=== PATIENT | male | born 1945 | race Caucasian/White ===

== ENCOUNTER 2018-07-20 13:43 | Emergency (ER) | payer MEDICARE, SELFPAY ==
[2018-07-20 13:44] VITALS: BP 116/58; PULSE 112; RESP 16; TEMP 36.6; O2SAT 97; BMI 27.3
--- NOTE | 2018-07-20 13:55 | VDLE_ITS ---
Reason For Study: RLE Pain RIGHT GSV is normal. CFV is compressible, spontaneous, phasic, competent and demonstrates normal augmentation. FV is compressible, spontaneous, phasic, competent and demonstrates normal augmentation. POP V is compressible, spontaneous, phasic, competent and demonstrates normal augmentation. T/P Trunk is compressible. PTV is compressible. RT PerV is compressible. Procedure Exam performed portable in ED. A preliminary report was called and/or faxed to [facility]. Interpretation Summary Deep veins of the right lower extremity are patent and compressible segmentally. There is no evidence of right lower extremity deep vein thrombosis. Valvular competence appears intact within the proximal deep venous system on the right . The right greater saphenous vein appears patent and compressible segmentally. Ordering Physician: Madiha Philip Referring Physician: Jared Shearer M.D. Performed By: Dona Smith RVT
--- NOTE | 2018-07-20 14:00 | RAD_ITS ---
STUDY: X-RAY - RIGHT TIBIA AND FIBULA REASON FOR EXAM: Male, 72 years old. Diffuse pain. TECHNIQUE: 2 view(s) of the tibia and fibula were obtained. COMPARISON: None. FINDINGS: Status post total knee replacement. Normal visualized fibula. Status post ankle replacement. 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 Calcaneal spurs. The soft tissue structures are unremarkable. RAD/Tibia & Fibula 2 Views IMPRESSION: No acute abnormality is seen. Electronically Signed: Chris Sidhu, at 14:37 EDT , Service support ,
--- NOTE | 2018-07-20 14:08 | ED.VISSUMM ---
- ER Visit Summary Date of Service: 07/20/18 Chief Complaint: [Right leg pain History of Present Illness: The patient is a 72 M [since the emergency department in his right leg x2 days. Patient denies any injury. He denies recent travel or surgery. He denies any chest pain or shortness of breath. Patient does state that it only tends to hurt when he is up and walking. Patient did have a right ankle replacement about 3 or 4 years ago. He denies any fevers.] Physical Examination: [HEENT-PERRLA, EOMI. Cranial nerves II through XII grossly intact. TMs clear. Mucous membranes moist. No adenopathy. Cardiovascular-regular rate and rhythm without murmur or ectopy Lungs-clear to auscultation, chest wall stable without crepitus or subcu emphysema Abdomen-normoactive bowel sounds, soft, nontender, no rebound or rigidity, no peritoneal signs. Extremities-intact ?4, normal range of motion, normal pulses, atraumatic. Right leg-patient has tenderness to the anterior aspect of the lower leg as well as calf. No erythema or warmth noted. No ropes or cords palpated. Negative Homans sign. Patient has normal popliteal, dorsal pedal, and posterior tibial pulses. Normal cap refill.] Test Results: [X-rays of the right tib-fib obtained showed prior right knee replacement and right ankle displacement otherwise nothing acute. Patient had venous Doppler of the right lower extremity that was negative for DVT.] Emergency Department Course and Treatment: [] Treatment Plan: [Advised to use ibuprofen or Tylenol for discomfort and to rest lower extremity. Patient advised to follow-up with primary care physician in 5 to 7 days.] Disposition: [Discharged home in stable condition] Impression: [Leg pain-etiology uncertain] This note was generated with [employer] dictation software. It may contain incorrect words, spelling, and punctuation that were not noted in review of the chart prior to signing ED Disposition - Plan for ED Patient: Referrals: Isabel Henriquez DO [Primary Care Provider] -
--- NOTE | 2018-07-20 15:03 | ED.DEP ---
ED Disposition - Plan for ED Patient: Instructions: ED Strain Muscle Ext Referrals: Isabel Henriquez DO [Primary Care Provider] - 5-7 Days
== END 2018-07-20 15:13 | disposition home or self-care (01) ==
LOC: ED 14:10
PROVIDERS: Emergency Provider Emergency Medicine; Family Provider Family Medicine; PCP Family Medicine
DX: M79.604 Pain in right leg (principal); Z96.661 Presence of right artificial ankle joint; Z96.651 Presence of right artificial knee joint
CPT/HCPCS: 73590; 93971; 99282

== ENCOUNTER 2022-12-07 12:25 | Inpatient (IN) | payer MEDICARE, SELFPAY ==
[2022-12-07] VITALS (18 sets, daily range): BP systolic 89–115; BP diastolic 57–98; PULSE 65–170; RESP 18–24; TEMP 36.1–36.3; O2SAT 92–97; BMI 25.3; BMI 27.0
--- NOTE | 2022-12-07 12:33 | EDS_ITS ---
HPI <WILLIAM Kwong - Last Filed: 12/07/22 14:32> History of Present Illness Chief Complaint: Palpitations Narrative Narrative: 77-year-old male went in for left rotator cuff surgery this morning and his preop EKG was abnormal so he was sent here for evaluation. He states he feels completely fine. Denies chest pain, shortness of breath, palpitations, or GI symptoms. He held his aspirin and meloxicam over the last 5 days per orthopedic instructions. He denies cardiac history. PFSH <WILLIAM Kwong - Last Filed: 12/07/22 14:32> [facility] Medical History (Updated 12/07/22 @ 14:[address] Aubrey Watson MD) Anxiety Arthritis Depression Home Medications calcium carbonate 600 mg-vitamin D3 10 mcg (400 unit) tablet (Calcium 600 + D(3)) 1 ea PO BID 04/26/13 [History Last Taken Unknown] famotidine 20 mg tablet 20 mg PO DAILY 04/26/13 [History Last Taken 05/02/13 04:00] bupropion HCl 300 mg 24 hr tablet, extended release 300 mg PO DAILY 12/07/22 [History Last Taken Unknown] buspirone 15 mg tablet 15 mg PO BID 12/07/22 [History Last Taken Unknown] meloxicam 7.5 mg tablet 7.5 mg PO BID 12/07/22 [History Last Taken Unknown] Allergy/AdvReac Type Severity Reaction Status Date / Time No Known Allergies Allergy Verified 12/07/22 12:27 Surgical History (Updated 12/07/22 @ 13:42 by Gabrielle Chung) Ankle joint replacement status Previous back surgery Total knee replacement status Social History (Updated 12/07/22 @ 13:42 by Gabrielle Chung) household members: spouse and family housing: house Smoking Status: Former smoker ROS <WILLIAM Kwong - Last Filed: 12/07/22 14:32> ROS ED ROS Narrative Constitutional: Negative for fever, chills, malaise. CVS: Negative for palpitations, chest pain, syncope. Respiratory: Negative for shortness of breath, cough, orthopnea. GI: Negative for abdominal pain, nausea, vomiting. EXAM <WILLIAM Kwong - Last Filed: 12/07/22 14:32> Physical Exam Narrative Exam Narrative: CONST: Patient sitting in no acute distress. EYES: Normal inspection. NECK: Normal inspection. RESP: No respiratory distress, CTAB. CVS: Tachycardic irregularly irregular rhythm, no murmur, no gallop. SKIN: Color normal, no rash, warm, dry, intact. EXTREMITIES: Normal appearance, no pedal edema. NEURO: Oriented x4. PSYCH: Normal affect. Const Vital Signs: 12/07/22 12:26 12/07/22 12:43 12/07/22 13:05 Temperature 97 F L Temperature Source Temporal Pulse Rate 115 H 170 H 157 H Respiratory Rate 18 24 H 18 Blood Pressure 113/98 H 100/88 H Blood Pressure Mean 103 92 Pulse Ox 97 94 95 Oxygen Delivery Method Room Air Room Air Room Air 12/07/22 13:06 12/07/22 13:40 12/07/22 13:54 Temperature Temperature Source Pulse Rate 127 H 157 H 120 H Respiratory Rate 21 H 18 Blood Pressure 106/82 H 112/71 Blood Pressure Mean 90 84 Pulse Ox 92 92 Oxygen Delivery Method Room Air 12/07/22 14:26 Temperature Temperature Source Pulse Rate 113 H Respiratory Rate 19 H Blood Pressure 115/67 Blood Pressure Mean 83 Pulse Ox 94 Oxygen Delivery Method <Dr. Aubrey Watson MD - Last Filed: 12/07/22 14:35> Physical Exam Const Vital Signs: 12/07/22 12:26 12/07/22 12:43 12/07/22 13:05 Temperature 97 F L Temperature Source Temporal Pulse Rate 115 H 170 H 157 H Respiratory Rate 18 24 H 18 Blood Pressure 113/98 H 100/88 H Blood Pressure Mean 103 92 Pulse Ox 97 94 95 Oxygen Delivery Method Room Air Room Air Room Air 12/07/22 13:06 12/07/22 13:40 12/07/22 13:54 Temperature Temperature Source Pulse Rate 127 H 157 H 120 H Respiratory Rate 21 H 18 Blood Pressure 106/82 H 112/71 Blood Pressure Mean 90 84 Pulse Ox 92 92 Oxygen Delivery Method Room Air 12/07/22 14:26 Temperature Temperature Source Pulse Rate 113 H Respiratory Rate 19 H Blood Pressure 115/67 Blood Pressure Mean 83 Pulse Ox 94 Oxygen Delivery Method MDM <WILLIAM Kwong - Last Filed: 12/07/22 14:32> MDM MDM Narrative Medical decision making narrative: History gathered from: Patient, family member Patient sent in for abnormal EKG found during preop clearance. He is asymptomatic. He is awake and alert in no distress. He is in A-fib RVR in the 160s, BP 113/98, and otherwise normal vital signs. Other than A-fib his exam is unremarkable. He has had no chest pain, dyspnea, or palpitations. Blood work including CBC, BMP, troponin and magnesium are all within normal limits. He was given IV Cardizem 10 mg bolus and started on drip at 5 mg/hour. He remained persistently in the 120?140 range so will be increased to 10 mg an hour. Case discussed with hospitalist for admission to stepdown unit. Lab Data Attestation: I reviewed the patient's lab results. Labs: Laboratory Results - last 24 hr 12/07/22 12:40 WBC 9.6 RBC 4.74 Hgb 15.0 Hct 45.1 MCV 95.1 H MCH 31.6 MCHC 33.3 RDW Std Deviation 46.2 H RDW Coeff of Davis 13.2 Plt Count 189 MPV 8.6 Immature Gran % (Auto) 0.400 Neut % (Auto) 68.2 Lymph % (Auto) 19.5 Lewis % (Auto) 8.3 Eos % (Auto) 2.9 Baso % (Auto) 0.7 Absolute Neuts (auto) 6.6 Absolute Lymphs (auto) 1.87 Nucleated RBC % 0 Sodium 139 Potassium 4.1 Chloride 107 Carbon Dioxide 26.0 Anion Gap 6 BUN 23 H Creatinine 1.28 Estim Creat Clear Calc 52.20 Est GFR (MDRD) Af Amer 70 Est GFR (MDRD) Non-Af 58 L BUN/Creatinine Ratio 18.0 Glucose 101 Calcium 9.4 Magnesium 2.5 Troponin I High Sens 11 Radiography Diagnostic Testing: Clinical Impression(s) from Imaging Studies Chest X-Ray 12/07/22 12:37 IMPRESSION: No acute abnormality is seen. Electronically Signed: Chris Sidhu MD at 13:11 EDT , ED attending interpretation of 1- view chest x-ray shows normal heart size, no acute infiltrate, edema, or effusion. EKG Initial EKG: Attestation: I personally reviewed and interpreted this EKG as follows: Comments: A-fib RVR at 159 bpm No STEMI criteria <Dr. Aubrey Watson MD - Last Filed: 12/07/22 14:35> [facility] Lab Data Labs: Laboratory Results - last 24 hr 12/07/22 12:40 WBC 9.6 RBC 4.74 Hgb 15.0 Hct 45.1 MCV 95.1 H MCH 31.6 MCHC 33.3 RDW Std Deviation 46.2 H RDW Coeff of Davis 13.2 Plt Count 189 MPV 8.6 Immature Gran % (Auto) 0.400 Neut % (Auto) 68.2 Lymph % (Auto) 19.5 Lewis % (Auto) 8.3 Eos % (Auto) 2.9 Baso % (Auto) 0.7 Absolute Neuts (auto) 6.6 Absolute Lymphs (auto) 1.87 Nucleated RBC % 0 Sodium 139 Potassium 4.1 Chloride 107 Carbon Dioxide 26.0 Anion Gap 6 BUN 23 H Creatinine 1.28 Estim Creat Clear Calc 52.20 Est GFR (MDRD) Af Amer 70 Est GFR (MDRD) Non-Af 58 L BUN/Creatinine Ratio 18.0 Glucose 101 Calcium 9.4 Magnesium 2.5 Troponin I High Sens 11 Radiography Diagnostic Testing: Clinical Impression(s) from Imaging Studies Chest X-Ray 12/07/22 12:37 IMPRESSION: No acute abnormality is seen. Electronically Signed: Chris Sidhu MD at 13:11 EDT , Treatment and Re-Evaluation :: I have personally performed a face to face assessment of the patient and have reviewed the LEONA Note. I performed a substantive portion of the visit including all aspects of the following. My savage findings include: History: Patient was sent from preoperative clearance for increased heart rate. Patient states he feels fine. He does not feel his heart rate high or irregular. He is not short of breath or having chest pain. He does not feel lightheaded. He feels the same today as he does every other day. Patient has no history of heart disease or heart rhythm abnormalities. No recent travel surgery or immobilization or history of DVT or PE. He takes baby aspirin but has held this pending rotator cuff surgery. He is also on meloxicam and antidepressant. Exam: Patient is awake alert nontoxic. He looks comfortable. He is not pale or diaphoretic. Lungs are clear. Heart is tachycardic and irregular. Abdomen is benign. No notable edema. Monitor shows atrial fibrillation with rapid rate Medical Decision Making: Patient will have blood work done. We will initiate diltiazem. We gave him an IV bolus and his heart rate has come down about 30-40 beats. We are waiting for a drip from pharmacy. Plan will be to admit the patient for further work-up. <Dr. Aubrey Watson MD - Last Filed: 12/07/22 14:35> Critical Care Time Critical Care Time: Yes Critical care time (excluding procedures): 30-74 minutes, Discussing w/Patient &/or Family/Protein Scientist, Discussing w/Consultants, Arranging Admission or Transfer, Performing Direct Patient Care at Bedside and - (35 minutes, adjusting meds, starting and adjusting drip, arranging admission, charting) Discharge Plan Triage Chief Complaint: Palpitations ED Midlevel Provider: Suha Gonzales ED Provider: Aubrey Watson Dx/Rx/DC Orders Clinical Impression: Atrial fibrillation with rapid ventricular response, Aspirin long-term use, History of arthritis Prescriptions: No Action famotidine 20 MG tablet 20 mg PO DAILY calcium carbonate-vitamin D3 [Calcium 600 + D(3)] 1 EACH tablet 1 ea PO BID buspirone 15 mg tablet 15 mg PO BID Patient Comments: TAKE ONE TABLET BY MOUTH TWICE DAILY bupropion HCl 300 mg tablet extended release 24 hr 300 mg PO DAILY Patient Comments: TAKE ONE TABLET BY MOUTH EVERY DAY meloxicam 7.5 mg tablet 7.5 mg PO BID Patient Comments: TAKE ONE TABLET BY MOUTH TWICE DAILY WITH FOOD Primary Care Provider: Isabel Henriquez Referrals: Isabel Henriquez DO [Primary Care Provider] -
--- NOTE | 2022-12-07 12:37 | RAD_ITS ---
STUDY: X-RAY CHEST REASON FOR EXAM: Male, 77 years old. Palpitations TECHNIQUE: Single AP portable view of the chest. COMPARISON: None. FINDINGS: EKG electrodes are seen. The lungs are clear and expanded. There is no demonstrated pleural abnormality. Normal size heart. Calcified left hilar and mediastinal lymph nodes. Normal visualized pulmonary arteries. There is atherosclerotic calcification of the aortic arch with tortuosity. There are degenerative changes of the visualized thoracic spine. Normal visualized ribs, clavicles, and shoulders. There is no demonstrated abnormality of the visualized soft tissue structures of the upper abdomen. RAD/Chest 1 View (Portable) IMPRESSION: No acute abnormality is seen. Electronically Signed: Chris Sidhu MD at 13:11 EDT ,
[2022-12-07 12:54] LABS: Absolute Lymphocyte Count 1.87 X10^3/uL (0.83-4.51); Absolute Neutrophil Count 6.6 X10^3/uL (2.0-7.7); Basophil# 0.07 X10^3/uL; Basophil% 0.7 % (0-1); Eosinophil# 0.28 X10^3/uL; Eosinophils% 2.9 % (0-5); Hematocrit 45.1 % (40-54); Lymphocyte # 1.87 X10^3/ul (0.83-4.51); Lymphocyte % 19.5 % (19-41); Mean Corp Hgb Conc 33.3 g/dL (32-36); Mean Corpuscular Hgb 31.6 pg (27.0-32.0); Mean Corpuscular Volume 95.1 fL (80-94); Mean Platelet Vol. 8.6 fl (6.2-12.0); Monocyte% 8.3 % (0-10); NRBC Flagged by Analyzer 0 % (0-5); Neutrophil # 6.55 X10^3/uL (2.7-7.7); Neutrophil % 68.2 % (47-70); Platelet Count 189 K/mm3 (150-450); RBC Distribution Width CV 13.2 % (11.6-14.6); RBC Distribution Width SD 46.2 fl (35.1-43.9); Red Blood Count 4.74 M/mm3 (4.6-6.2); White Blood Count 9.6 K/mm3 (4.4-11.0)
[2022-12-07] MEDS: dilTIAZem 25 MG/5 ML Vial 10 MG IV BOLUS (13:04)
[2022-12-07 13:09] LABS: Anion Gap 6 (5-15); BUN 23 mg/dL (7-18); Calcium,Total 9.4 mg/dL (8.5-10.1); Chloride 107 mmol/L (98-107); Creatinine, Serum 1.28 mg/dL (0.70-1.30); EST Glomerular Filtration Rate 58 mL/min (>60); Est Glom Filt Rate - Afr Amer 70 mL/min (>60); Glucose 101 mg/dL (74-106); Magnesium 2.5 mg/dL (1.6-2.6); Potassium 4.1 mmol/L (3.5-5.1); Sodium Level 139 mmol/L (136-145); Troponin-I HS 11 pg/mL (3.0-78.0)
--- NOTE | 2022-12-07 13:17 | EKG12_ITS ---
Test Reason : Blood Pressure : / mmHG Vent. Rate : 159 BPM Atrial Rate : 000 BPM P-R Int : 000 ms QRS Dur : 088 ms QT Int : 284 ms P-R-T Axes : 000 079 007 degrees QTc Int : 461 ms Critical Test Result: High HR Atrial fibrillation with rapid ventricular response Nonspecific ST abnormality Abnormal ECG Confirmed by BONILLA CARRINGTON, DAMEON ([id number]), food expeditor TRINI HEATON ([id number]) on 12/19/2022 7:58:22 AM Referred By: ABIDA Confirmed By:BRITNI CRYSTAL MD
--- NOTE | 2022-12-07 13:19 | NURSING ---
NO OLD EKGS
[2022-12-07] MEDS: Diltiazem 125 MG in Dextrose 5%-Water (100mL Bag) 100 ML CONT INF (13:40)
--- NOTE | 2022-12-07 15:40 | ECHOD_ITS ---
Reason For Study: ATRIAL FIBRILLLATION/ATRIAL FLUTTER Procedure This was a 2D Doppler, Color Flow transthoracic echocardiogram. Exam performed portable in patient room. Left Ventricle Normal LV size. The estimated ejection fraction is 50-55 %. No evidence for diastolic dysfunction. No regional wall motion abnormalities noted. Right Ventricle Normal RV size. Normal systolic function. Atria The left atrium is mildly enlarged. The right atrium is mildly enlarged. No doppler evidence for ASD. Mitral Valve There is no mitral valve stenosis. Trivial mitral valve insufficiency. Tricuspid Valve There is no tricuspid stenosis. Trivial tricuspid valve insufficiency. Unable to estimate RV systolic pressure due to insufficient tricuspid regurgitant envelope. Aortic Valve Trisinus/trileaflet aortic valve. There is no aortic stenosis. Trivial aortic valve insufficiency. Pulmonic Valve There is no pulmonic valvular stenosis. No pulmonic valve insufficiency. Great Vessels Normal aortic root. Pericardium/Pleural No pericardial effusion. MMode/2D Measurements & Calculations LVIDd: 4.6 cm IVSd: 1.1 cm Ao root diam: 3.3 cm LVIDs: 3.4 cm LVPWd: 1.1 cm RVDd: 2.9 cm FS: 24.9 % LAV(MOD-bp): 74.9 ml LVAd ap4: 30.0 cm2 LVAd ap2: 31.0 cm2 LAV(MOD-sp2): 74.7 ml LVLd ap4: 8.0 cm LVLd ap2: 8.1 cm LAV(MOD-sp4): 74.7 ml EDV(MOD-sp4): 94.7 ml EDV(MOD-sp2): 97.0 ml EDV(sp4-el): 95.6 ml EDV(sp2-el): 100.6 ml LVAs ap4: 19.5 cm2 LVAs ap2: 18.5 cm2 LVLs ap4: 6.8 cm LVLs ap2: 7.0 cm ESV(MOD-sp4): 47.2 ml ESV(MOD-sp2): 41.6 ml ESV(sp4-el): 47.3 ml ESV(sp2-el): 41.7 ml EF(MOD-sp4): 50.2 % EF(MOD-sp2): 57.1 % EF(sp4-el): 50.5 % SV(MOD-sp4): 47.5 ml SV(MOD-sp2): 55.4 ml SV(sp4-el): 48.3 ml LA dimension(2D): 4.7 cm LA A4 area: 23.4 cm2 RA A4 area: 17.3 cm2 TAPSE: 2.6 cm Time Measurements MV dec time: 0.29 sec Doppler Measurements & Calculations MV E max hong: 65.2 cm/sec Lat Peak E' Hong: 11.6 cm/sec Med Peak E' Hong: 9.8 cm/sec MV A max hong: 67.6 cm/sec E/E' lat: 5.6 E/E' med: 6.6 MV E/A: 0.96 MV V2 max: 84.2 cm/sec MV P1/2t max hong: 72.7 cm/sec Ao V2 max: 98.3 cm/sec MV max P.8 mmHg MV P1/2t: 92.2 msec Ao max P.9 mmHg MV V2 mean: 50.3 cm/sec MV dec slope: 230.9 cm/sec2 Ao V2 mean: 75.5 cm/sec MV mean P.1 mmHg Ao mean P.4 mmHg MV V2 VTI: 22.1 cm MVA(P1/2t): 2.4 cm2 Ao V2 VTI: 24.4 cm AV (velocity ratio): 0.78 LV V1 max: 72.5 cm/sec PA V2 max: 130.5 cm/sec LV V1 max P.1 mmHg PA V2 mean: 101.7 cm/sec LV V1 mean P.2 mmHg LV V1 mean: 51.4 cm/sec LV V1 VTI: 19.0 cm ECHO/Echo Complete Interpretation Summary The estimated ejection fraction is 50-55 %. No evidence for diastolic dysfunction. The left atrium is mildly enlarged. The right atrium is mildly enlarged. Trivial mitral valve insufficiency. Ordering Physician: Dimas Slater Referring Physician: Isabel Henriquez Performed By: Madie Luke, CHUCHO, RVT
[2022-12-07] MEDS: Metoprolol Tartrate 25 MG Tablet 12.5 MG PO ×2 (16:18→21:33)
--- NOTE | 2022-12-07 16:40 | EKG12_ITS ---
Test Reason : RHYTHM CHANGE Blood Pressure : / mmHG Vent. Rate : 079 BPM Atrial Rate : 079 BPM P-R Int : 172 ms QRS Dur : 100 ms QT Int : 408 ms P-R-T Axes : -12 063 045 degrees QTc Int : 467 ms Sinus rhythm with Premature atrial complexes Otherwise normal ECG When compared with ECG of 07-DEC-2022 12:33, MANUAL COMPARISON REQUIRED, DATA IS UNCONFIRMED Confirmed by BONILLA CARRINGTON, DAMEON ([id number]), offline editor KATHY CARABALLO ([id number]) on 12/19/2022 11:11:08 AM Referred By: Confirmed By:BRITNI CRYSTAL MD
--- NOTE | 2022-12-07 17:46 | PCM.HP.STD ---
HPI - General General Date of Admission: 12/07/22 Date of Service: 12/07/22 Chief Complaint: New onset atrial fib with RVR HPI Narrative DONI TABARES, is a 77 M who presents to the emergency room at [facility] for evaluation of newly diagnosed A-fib with RVR, patient was in preop about to undergo a shoulder surgery when it was noted that he was in atrial fibrillation which is a new rhythm for the patient. He was sent to the ER for evaluation. EKG showed the patient to be in A-fib with a rate of approximately 120, patient was asymptomatic. Labs obtained on the patient reveal normal CBC, chemistry profile was abnormal for a BUN of 23. Chest x-ray showed no acute abnormality, patient's troponin was unremarkable. Patient was placed on Cardizem drip in the emergency room, he will be admitted to stepdown on PCU and the Cardizem drip will be continued. I have elected to add a small dose of a beta-aliya to the patient's medical regimen, echocardiogram was ordered, I briefly talked with cardiology about the case and they did not advise having the patient undergo a stress test at this time. [facility] Medical History Anxiety Arthritis Depression Home Medications calcium carbonate 600 mg-vitamin D3 10 mcg (400 unit) tablet (Calcium 600 + D(3)) 1 ea PO BID suppleme 04/26/13 [History Last Taken 12/06/22] famotidine 20 mg tablet 20 mg PO DAILY stomach 04/26/13 [History Last Taken 05/02/13 04:00] bupropion HCl 300 mg 24 hr tablet, extended release 300 mg PO DAILY mood 12/07/22 [History Last Taken 12/06/22] buspirone 15 mg tablet 15 mg PO BID mood 12/07/22 [History Last Taken 12/06/22] meloxicam 7.5 mg tablet 7.5 mg PO BID stomach 12/07/22 [History Last Taken Unknown] Allergy/AdvReac Type Severity Reaction Status Date / Time No Known Allergies Allergy Verified 12/07/22 12:27 Surgical History Ankle joint replacement status Previous back surgery Total knee replacement status Social History (Updated 12/07/22 @ 13:42 by Gabrielle Chung) household members: spouse and family housing: house Smoking Status: Former smoker ROS Constitutional Constitutional: Denies anorexia, change in weight, chills, fatigue, fever(s), night sweats or weakness Eyes Eyes: Denies blurry vision, change in vision, discharge from eye(s) or eye pain Cardiovascular Cardiovascular: Denies chest pain, claudication, dyspnea on exertion, edema, lightheadedness or palpitations Respiratory/Chest Respiratory/Chest: Denies cough, excessive phlegm production, hemoptysis, productive cough, shortness of breath at rest or shortness of breath with exertion Gastrointestinal Gastrointestinal: Denies abdominal pain, constipation, diarrhea, dyspepsia, hematemesis, hematochezia, melena, nausea or vomiting Genitourinary Genitourinary: Denies dysuria, hematuria, urinary frequency, urinary hesitancy, urinary incontinence or urinary urgency Musculoskeletal Musculoskeletal: Denies back pain, joint pain, joint stiffness, joint swelling, myalgias or neck pain Neurologic Neurologic: Denies abnormal gait, abnormal speech, dizziness, focal weakness, headache(s), loss of vision, numbness, other visual disturbances, paresthesias, syncope or tingling Psychiatric Psychiatric: Denies anxiety, cognitive impairment, depression, irritability, mood swings or suicidal ideation Endocrine Endocrinology: Denies change in body appearance, cold intolerance, excessive sweating, heat intolerance, polydipsia or polyuria Hematologic/Lymphatic Hematologic/Lymphatic: Denies none, anemia, easy bleeding, easy bruising or lymphadenopathy Allergic/Immunologic Allergic/Immunologic: Denies rhinitis, urticaria, eczemia or asthma Vital Signs Vital Signs Vital Signs: 12/07/22 12:26 12/07/22 12:43 12/07/22 13:05 Temperature 97 F L Temperature Source Temporal Pulse Rate 115 H 170 H 157 H Respiratory Rate 18 24 H 18 Respiratory Effort Respiratory Depth Respiratory Pattern Blood Pressure 113/98 H 100/88 H Blood Pressure Mean 103 92 Blood Pressure Source Blood Pressure Position Blood Pressure Location Pulse Ox 97 94 95 Oxygen Delivery Method Room Air Room Air Room Air 12/07/22 13:06 12/07/22 13:40 12/07/22 13:54 Temperature Temperature Source Pulse Rate 127 H 157 H 120 H Respiratory Rate 21 H 18 Respiratory Effort Respiratory Depth Respiratory Pattern Blood Pressure 106/82 H 112/71 Blood Pressure Mean 90 84 Blood Pressure Source Blood Pressure Position Blood Pressure Location Pulse Ox 92 92 Oxygen Delivery Method Room Air 12/07/22 14:26 12/07/22 14:44 12/07/22 15:50 Temperature 97.4 F L Temperature Source Oral Pulse Rate 113 H 124 H 83 Respiratory Rate 19 H 19 H 18 Respiratory Effort Respiratory Depth Respiratory Pattern Blood Pressure 115/67 107/65 Blood Pressure Mean 83 79 Blood Pressure Source Monitor Blood Pressure Position Semi-Fowlers Blood Pressure Location Left Arm Pulse Ox 94 96 95 Oxygen Delivery Method Room Air 12/07/22 16:00 12/07/22 16:18 12/07/22 16:00 Temperature Temperature Source Pulse Rate 82 82 Respiratory Rate Respiratory Effort Normal Non-Labored Respiratory Depth Normal Respiratory Pattern Normal Blood Pressure 101/60 Blood Pressure Mean 73 Blood Pressure Source Monitor Blood Pressure Position Semi-Fowlers Blood Pressure Location Left Arm Pulse Ox Oxygen Delivery Method Room Air 12/07/22 17:00 12/07/22 17:15 12/07/22 17:30 Temperature Temperature Source Pulse Rate 81 74 70 Respiratory Rate 18 20 H 18 Respiratory Effort Respiratory Depth Respiratory Pattern Blood Pressure 101/57 L 95/64 89/65 L Blood Pressure Mean 71 74 73 Blood Pressure Source Monitor Monitor Monitor Blood Pressure Position Semi-Fowlers Semi-Fowlers Semi-Fowlers Blood Pressure Location Left Arm Left Arm Left Arm Pulse Ox 93 97 94 Oxygen Delivery Method Room Air Room Air Room Air Weight Weight: 83 kg Body Mass Index (BMI) 27.0 Physical Exam Const alert, oriented x3, no apparent distress, average body habitus and healthy appearing General Appearance: cooperative, well kempt and well developed Orientation / Consciousness: awake, oriented to person, oriented to place and oriented to time HEENT normocephalic, head/scalp atraumatic, hearing grossly normal bilaterally and moist oral mucous membranes Eyes PERRL, EOMs intact bilaterally and conjunctivae normal Neck supple, no JVD, thyroid normal and no carotid bruits General: trachea midline Resp normal respiratory effort, no retractions, no use of accessory muscles and clear to auscultation bilaterally Auscultation: Negative for rales, rhonchi or wheezes Cardio S1 normal heart sound, S2 normal heart sound, no murmurs, no rub and no gallops Cardio Narrative: Heart rate and rhythm is irregular GI normal to inspection, nondistended, normoactive bowel sounds, soft to palpation, non-tender and non-distended Extremity no clubbing, cyanosis or edema Skin no rashes or lesions noted General Skin Exam: no breakdown Neuro oriented x3, CN's II-XII intact bilaterally, moves all extremities, no focal motor deficits and no sensory deficits noted Sensorium / Orientation: awake and alert Speech: speech normal Psych affect normal Results Lab / Micro Data 12/07/22 12:40 12/07/22 12:40 Labs: Laboratory Results - last 24 hr 12/07/22 12:40: WBC 9.6, RBC 4.74, Hgb 15.0, Hct 45.1, MCV 95.1 H, MCH 31.6, MCHC 33.3, RDW Std Deviation 46.2 H, RDW Coeff of Davis 13.2, Plt Count 189, MPV 8.6, Immature Gran % (Auto) 0.400, Neut % (Auto) 68.2, Lymph % (Auto) 19.5, Sharp % (Auto) 8.3, Eos % (Auto) 2.9, Baso % (Auto) 0.7, Absolute Neuts (auto) 6.6, Absolute Lymphs (auto) 1.87, Nucleated RBC % 0, Sodium 139, Potassium 4.1, Chloride 107, Carbon Dioxide 26.0, Anion Gap 6, BUN 23 H, Creatinine 1.28, Estim Creat Clear Calc 52.20, Est GFR (MDRD) Af Amer 70, Est GFR (MDRD) Non-Af 58 L, BUN/Creatinine Ratio 18.0, Glucose 101, Calcium 9.4, Magnesium 2.5, Troponin I High Sens 11 Radiology Impression Chest X-Ray 12/07/22 12:37 IMPRESSION: No acute abnormality is seen. Electronically Signed: Chris Sidhu MD at 13:11 EDT , Assessment & Plan Assessment/Plan (1) Atrial fibrillation with rapid ventricular response: PLAN: Plan 1. New onset atrial fibrillation with rapid ventricular response-patient will be placed in the stepdown status on PCU, Cardizem drip will be continued, patient will have an echocardiogram ordered, I will place patient on a small amount of a beta-aliya to augment treatment. I will begin the patient on Eliquis, I went over this medication with him. His family member was also in the room at the time my examination. #2 chronic anxiety/depression-patient is on Wellbutrin and BuSpar, these will be continued #3 osteoarthritis-I talked with the patient about using nonsteroidal anti-inflammatories while on Eliquis-I told him that he is not allowed to take his meloxicam or any other anti-inflammatories while on Eliquis. Total clinical time spent by myself addressing the patient's medical issues, reviewing all of his data, and collaborating with patient's care team: 55 min Charges/Coding Visit Charges Inpatient E&M: 67121 Init Hosp L2
[2022-12-07] MEDS: dilTIAZem CD 180 MG Capsule PO (18:02)
[2022-12-07] MEDS: APIXABAN 5 MG TABLET PO (21:33)
[2022-12-07] MEDS: busPIRone 15 MG TABLET PO (21:34)
[2022-12-08 08:51] VITALS: BP 102/75; PULSE 62; RESP 16; TEMP 36.5; O2SAT 94
[2022-12-08 08:53] LABS: Thyroid Stim Hormone (TSH) 3.24 uIU/mL (0.358-3.74)
[2022-12-08] MEDS: busPIRone 15 MG TABLET PO ×2 (08:55→21:12)
[2022-12-08] MEDS: APIXABAN 5 MG TABLET PO ×2 (08:55→21:12)
[2022-12-08] MEDS: buPROPion (XL) 300 MG TABLET.XL PO (08:55)
[2022-12-08] MEDS: Flu Vacc QS2023-24(65YR UP)/PF 240 MCG/0.7 ML Syringe IM (08:55)
[2022-12-08] MEDS: Famotidine 20 MG Tablet PO (08:55)
[2022-12-08] MEDS: Acetaminophen 325 MG Tablet 650 MG PO (10:40)
[2022-12-08 11:20] VITALS: BP 103/67; PULSE 88
[2022-12-08 12:08] VITALS: PULSE 75
[2022-12-08] MEDS: Metoprolol Tartrate 25 MG Tablet PO ×2 (12:08→21:12)
--- NOTE | 2022-12-08 12:40 | CASEMGMT ---
RN HILDA Face to Face with patient for initial transition planning/care coordination assessment. RN CM introduced self and role at [facility]. Patient lying in bed, alert and oriented. Patient willing to participate in assessment and is able to answer all questions appropriately. Care providers, pharmacy, and demographics verified. Patient wishes to discharge home, denies need for home health at this time. Patient states he has no further needs or concerns at this time. CM to follow for discharge planning needs that may arise. PCP: Martinez Specialists: none Preferred Pharmacy: [facility] Insurance: [employer] Prescription Benefit: yes Living Will/HPOA: none LNOK: Living Arrangements: Patient lives with in a single story home with no steps to enter. Patient is independent at home. Transportation: self, daughter DME/HHC: Patient has shower chair, cane, walker, grab bars at home. No previous HHC or SNF. Disposition Plan: Patient to discharge home with family support and follow-up plans in place. Dona VEGA, RN, CM
--- NOTE | 2022-12-08 14:00 | PN_ITS ---
Subjective Subjective Patient seen and examined. He had no active complaints. He denied any palpitations, dizziness,nauea, vomitin, diarrhea or any other symptoms. Review of systems is otherwise negative. He is no longer in afib with RVR. Objective Data Objective Data Vital Signs: Vital Signs Temp Pulse Resp BP Pulse Ox O2 Del Method 97.7 F L 75 16 103/67 94 Room Air 12/08/22 08:51 12/08/22 12:08 12/08/22 08:51 12/08/22 11:20 12/08/22 08:51 12/08/22 08:51 Oxygen Delivery Method Room Air Weight: 182 lb 15.739 oz Body Mass Index (BMI) 27.0 Intake & Output: Intake and Output for Last 24 Hours 12/06/22 12/07/22 12/08/22 23:59 23:59 23:59 Intake Total 273.25 / 773.25 1230 / 1230 Balance 273.25 / 773.25 1230 / 1230 Lab / Micro Data 12/07/22 12:40 12/07/22 12:40 Labs: Laboratory Results - last 24 hr 12/07/22 12:40: TSH 3.24 Radiography Diagnostic Testing: Radiology Impression Echocardiogram 12/07/22 15:40 Interpretation Summary The estimated ejection fraction is 50-55 %. No evidence for diastolic dysfunction. The left atrium is mildly enlarged. The right atrium is mildly enlarged. Trivial mitral valve insufficiency. Ordering Physician: Dimas Slater Referring Physician: Isabel Henriquez Performed By: Madie Luke RDCS, RVT Physical Exam Const alert, oriented x3 and no apparent distress General Appearance: cooperative and well developed HEENT normocephalic, head/scalp atraumatic, moist oral mucous membranes and oropharynx normal Eyes PERRL and EOMs intact bilaterally Neck no lymphadenopathy, supple and no JVD Lymph Lymphatic: no lymphadenopathy noted and no lymphedema noted Resp normal respiratory effort, normal air movement and clear to auscultation bilat erally Cardio regular rate, regular rhythm, S1 normal heart sound, S2 normal heart sound and no murmurs GI normal to inspection, nondistended, normoactive bowel sounds, soft to palpation, non-tender and non-distended Extremity normal capillary refill, no clubbing, cyanosis or edema and no calf tenderness Extremity Narrative: has tenderness over left shoulder, which is the site of his rotator cuff injury Skin General Skin Exam: no breakdown and turgor normal Neuro CN's II-XII intact bilaterally, no focal motor deficits, no sensory deficits noted and deep tendon reflexes 2+ bilaterally Motor Exam: general weakness Psych thought process normal, cooperative and affect normal Appearance: appropriate Assessment & Plan Assessment/Plan (1) Atrial fibrillation with rapid ventricular response: PLAN: Plan #New onset afib * RVR has resolved * Was found to be in new onset A-fib with RVR while he was being prepared for surgery for his left rotator cuff injury. * He does have a history of A-fib. Now in normal sinus rhythm and rate controlled. * Was started on metoprolol and Cardizem yesterday. Blood pressure running low this morning and heart rate is well controlled. We will therefore DC Cardizem and placed on metoprolol 25 mg twice daily. Now off Cardizem drip. * 2D echo done today showed EF of 50 to 55% with no regional wall motion abnormality seen and no evidence of diastolic dysfunction with mildly enlarged right and left atrium. * Patient started on Eliquis. #Chronic anxiety and depression: On Wellbutrin and BuSpar #Osteoarthritis : * Complains of pain in his fingers in his right shoulder. On meloxicam. * Told that he will need to be off of this because he was on the Eliquis. * He is also been taking aspirin presumably for cardio prophylaxis as he has not had any heart issues. Will DC that also. * P.o. Tylenol DVT prophylaxis: Started on Eliquis Charges/Coding Visit Charges Inpatient E&M: 55079 Subs Hosp L2
[2022-12-08 14:50] VITALS: BP 94/69; PULSE 65; RESP 16; TEMP 36.4; O2SAT 97
[2022-12-08 21:08] VITALS: BP 109/66; PULSE 63; RESP 14; TEMP 36.4; O2SAT 97
[2022-12-08 21:12] VITALS: BP 109/66; PULSE 63
[2022-12-09 03:00] VITALS: BP 106/74; PULSE 83; RESP 16; TEMP 36.5; O2SAT 98
[2022-12-09 08:05] VITALS: BP 116/73; PULSE 69
[2022-12-09] MEDS: APIXABAN 5 MG TABLET PO (08:05)
[2022-12-09] MEDS: Metoprolol Tartrate 25 MG Tablet PO (08:05)
[2022-12-09] MEDS: buPROPion (XL) 300 MG TABLET.XL PO (08:05)
[2022-12-09] MEDS: busPIRone 15 MG TABLET PO (08:06)
[2022-12-09] MEDS: Famotidine 20 MG Tablet PO (08:06)
[2022-12-09 09:00] VITALS: BP 116/73; PULSE 65; RESP 18; TEMP 36.7; O2SAT 97
--- NOTE | 2022-12-09 11:36 | DS.PCM_ITS ---
Providers Date of Admission: 12/07/22 Date of Discharge: 12/09/22 Primary Care Physician: Dr. Isabel Henriquez DO Reason For Visit: A FIB RVR Diagnosis Discharge Diagnosis (1) Atrial fibrillation with rapid ventricular response: Status: Acute Code(s): I48.91 - Unspecified atrial fibrillation Plan #New onset afib * RVR has resolved * Was found to be in new onset A-fib with RVR while he was being prepared for surgery for his left rotator cuff injury. * He does have a history of A-fib. Now in normal sinus rhythm and rate controlled. * Was started on metoprolol and Cardizem yesterday. Blood pressure running low this morning and heart rate is well controlled. We will therefore DC Cardizem and placed on metoprolol 25 mg twice daily. Now off Cardizem drip. * 2D echo done today showed EF of 50 to 55% with no regional wall motion abnormality seen and no evidence of diastolic dysfunction with mildly enlarged right and left atrium. * Patient started on Eliquis. #Chronic anxiety and depression: On Wellbutrin and BuSpar #Osteoarthritis : * Complains of pain in his fingers in his right shoulder. On meloxicam. * Told that he will need to be off of this because he was on the Eliquis. * He is also been taking aspirin presumably for cardio prophylaxis as he has not had any heart issues. Will DC that also. * P.o. Tylenol DVT prophylaxis: Started on Eliquis Medications at Discharge Home Medications calcium carbonate 600 mg-vitamin D3 10 mcg (400 unit) tablet (Calcium 600 + D(3)) 1 ea PO BID suppleme 04/26/13 famotidine 20 mg tablet 20 mg PO DAILY stomach 04/26/13 bupropion HCl 300 mg 24 hr tablet, extended release 300 mg PO DAILY mood 12/07/22 buspirone 15 mg tablet 15 mg PO BID mood 12/07/22 apixaban 5 mg tablet (Eliquis) 5 mg PO BID #60 tabs 12/09/22 metoprolol tartrate 25 mg tablet 25 mg PO BID #60 tabs 12/09/22 Hospital Course Operations None Procedures None and 2-D Echocardiogram Summary of Care Provided Minutes Spent on Discharge: 55 Hospital Course: Patient is a 77-year-old male with a past medical history as outlined was admitted through the ED on 12/07/2022 with a complaint of newly diagnosed A-fib with RVR. Patient was about to have shoulder surgery at the ambulatory center and was in preop and was noticed that he was in A-fib per the monitor. EKG done showed patient was in A-fib with heart rate of approximately 120 bpm. Patient d id not have any history of A-fib. Chest x-ray showed no acute cardiopulmonary process. He was placed on Cardizem drip in the ED and admitted and managed for new onset A-fib with RVR. He was weaned off the Cardizem drip and placed on p.o. Cardizem as well as p.o. metoprolol. He was started on Eliquis. 2D echo was ordered. Patient subsequently became hypotensive likely this is result of the synergistic effects of the Cardizem and metoprolol. Cardizem was discontinued and patient was placed on metoprolol 25 mg twice daily. He had 2D echo which showed EF of 50 to 55% with no regional wall motion abnormality seen and no evidence of diastolic dysfunction, with mildly enlarged right and left atria. Patient was counseled that he will need to stop taking his meloxicam due to increased risk of bleeding whilst on Eliquis. He converted to normal rhythm and felt very well. He remained stable and was discharged home on 12/09/2022. He is to follow-up with his primary care doctor within 1 to 2 weeks. He was discharged with a prescription for p.o. metoprolol 25 mg twice daily and p.o. Eliquis 5 mg twice daily. Patient seen and examined prior to discharge. He felt well and had no compl aints. He had an uneventful night. Review of systems otherwise negative. Labs and vitals reviewed. Home medication reviewed and reconciled. Physical Exam Const alert, oriented x3, no apparent distress, average body habitus and healthy appearing General Appearance: cooperative, comfortable, well kempt and well developed Orientation / Consciousness: awake, oriented to person, oriented to place and oriented to time Exam Limitations: no limitations HEENT normocephalic, head/scalp atraumatic, hearing grossly normal bilaterally, moist oral mucous membranes and oropharynx normal Mouth: oral and palatal mucosa normal Eyes PERRL, EOMs intact bilaterally and conjunctivae normal Neck no lymphadenopathy, supple, no JVD, thyroid normal and no carotid bruits General: trachea midline Lymph Lymphatic: no lymphadenopathy noted and no lymphedema noted Resp normal respiratory effort, normal air movement, no retractions, no use of accessory muscles and clear to auscultation bilaterally Auscultation: Negative for rales, rhonchi or wheezes Cardio regular rate, regular rhythm, S1 normal heart sound, S2 normal heart sound, no murmurs, no rub and no gallops GI normal to inspection, nondistended, normoactive bowel sounds, soft to palpation, non-tender and non-distended Extremity normal capillary refill, no clubbing, cyanosis or edema and no calf tenderness Extremity Narrative: has tenderness over left shoulder, which is the site of his rotator cuff injury Skin no rashes or lesions noted General Skin Exam: no breakdown and turgor normal Neuro oriented x3, CN's II-XII intact bilaterally, moves all extremities, no focal motor deficits, no sensory deficits noted and deep tendon reflexes 2+ bilaterally Sensorium / Orientation: awake and alert Speech: speech normal Motor Exam: general weakness Psych thought process normal, cooperative and affect normal Appearance: appropriate Weight / BMI Weight Weight: 182 lb 15.739 oz Body Mass Index (BMI) 27.0 ABG / Lab / Microbiology Data 12/07/22 12:40 12/07/22 12:40 Radiography Diagnostic Testing: Radiology Impression Echocardiogram 12/07/22 15:40 Interpretation Summary The estimated ejection fraction is 50-55 %. No evidence for diastolic dysfunction. The left atrium is mildly enlarged. The right atrium is mildly enlarged. Trivial mitral valve insufficiency. Ordering Physician: Dimas Slater Referring Physician: Isabel Henriquez Performed By: Madie Luke RDCS, RVT D/C Instructions Discharge Diet: Low fat / Low cholesterol Discharge Activity: Return to Normal Activity Weight Bearing Status: Weight bearing as tolerated Call your doctor if you observe: Fever of 101 or Higher, Shortness of breath, Dizziness, Swelling in the ankles, Chest pain and Increased palpitations (irregular heartbeat) Meaningful Use Info Meaningful Use Diagnoses (Choose all that apply): None applicable Discharge Plan Admission Admit Date/Time: 12/07/22 14:39 Primary Reason for Your Visit: afib Attending Provider: Liliana Fierro Primary Care Provider: Isabel Henriquez Consulting Providers: Dimas Slater Instructions Patient Instructions: AFib Dc, AFib Preventing Stroke Discharge Orders/Prescriptions Prescriptions: New Eliquis 5 mg Tablet 5 mg PO BID Qty: 60 1RF metoprolol tartrate 25 mg Tablet 25 mg PO BID Qty: 60 2RF Continued famotidine 20 MG tablet 20 mg PO DAILY calcium carbonate-vitamin D3 [Calcium 600 + D(3)] 1 EACH tablet 1 ea PO BID buspirone 15 mg tablet 15 mg PO BID Patient Comments: TAKE ONE TABLET BY MOUTH TWICE DAILY bupropion HCl 300 mg tablet extended release 24 hr 300 mg PO DAILY Patient Comments: TAKE ONE TABLET BY MOUTH EVERY DAY Discontinued meloxicam 7.5 mg tablet 7.5 mg PO BID Patient Comments: TAKE ONE TABLET BY MOUTH TWICE DAILY WITH FOOD Referrals / Follow Up: Gael Mendenhall MD [Med Staff - Active Staff] - Within 1 Month (see to establish care for afib) Isabel Henriquez DO [Primary Care Provider] - Within 1 Week Disposition Disposition (needs filled in before D/C Order can be placed): Home, Self Care Charges/Coding Visit Charges Inpatient E&M: 15338 Disch Hosp >30min
--- NOTE | 2022-12-09 12:07 | PHA.DC_ITS ---
Pharmacy [facility] has performed discharge medication reconciliation and counseling for this patient. The patient's discharge medication list was reviewed for discrepancies and discrepancies were resolved. The patient was counseled on the following discharge medications and changes in medications for homegoing were reviewed. The Reason for Use, instructions for use, and potential side effects were reviewed for all new medications. The patient's questions regarding all of their medications were answered. 1. Apixaban 5 mg Po BID 2. Metoprolol tartrate 25 mg PO BID The patient was able to verbally demonstrate an understanding of their discharge medications. Medications at Discharge Home Medications calcium carbonate 600 mg-vitamin D3 10 mcg (400 unit) tablet (Calcium 600 + D(3)) 1 ea PO BID suppleme 04/26/13 famotidine 20 mg tablet 20 mg PO DAILY stomach 04/26/13 bupropion HCl 300 mg 24 hr tablet, extended release 300 mg PO DAILY mood 12/07/22 buspirone 15 mg tablet 15 mg PO BID mood 12/07/22 apixaban 5 mg tablet (Eliquis) 5 mg PO BID #60 tabs 12/09/22 metoprolol tartrate 25 mg tablet 25 mg PO BID #60 tabs 12/09/22
--- NOTE | 2022-12-09 12:10 | CASEMGMT ---
Patient is discharging today on Eliquis. KADE STEVENS called patient's pharmacy to inquire about copay. Cost is $117. KADE STEVENS in to patient's room and provided with savings card. Patient and daughter at bedside voiced understanding. Patient denied further needs and had no further questions or concerns at this time.
== END 2022-12-09 12:38 | disposition home or self-care (01) | DRG 310 ==
LOC: ED 14:34 → PCU 14:44
PROVIDERS: Physician Assistant; Admitting Provider Internal Medicine; Emergency Provider Emergency Medicine; PCP Family Medicine; Visit Provider Student in an Organized Health Care Education/Training Program
DX: I48.91 Unspecified atrial fibrillation (principal); F32.A Depression, unspecified; M19.90 Unspecified osteoarthritis, unspecified site; F41.9 Anxiety disorder, unspecified; Z79.82 Long term (current) use of aspirin; Z87.891 Personal history of nicotine dependence
CPT/HCPCS: 71045; 80048; 83735; 84443; 84484; 85025; 93005; 93306; 99284; 90662; A4216

== ENCOUNTER 2023-05-11 09:08 | Day surgery (SDC) | payer MEDICARE, SELFPAY ==
[2023-05-11] VITALS (8 sets, daily range): BP systolic 102–126; BP diastolic 64–72; PULSE 59–63; RESP 16; TEMP 36.2–36.9; O2SAT 92–97; BMI 26.6
[2023-05-11] MEDS: Lactated Ringers 1,000 ML 15 ML IV (09:55)
[2023-05-11] MEDS: Cefazolin 2 GM in 0.9% Normal Saline (100mL Bag) 100 ML IV (12:00)
[2023-05-11] MEDS: Epinephrine (1 mg/ml) 1 MG/ML VIAL (12:42)
[2023-05-11] MEDS: Oxycodone/Apap 5/325 Tablet PO (14:44)
--- NOTE | 2023-05-11 15:18 | OP.PCM_ITS ---
Report of Operation Date of Procedure: 05/11/23 Description of Surgical Findings:: Preoperative diagnosis: 1. Right shoulder rotator cuff tear 2. Right shoulder subacromial impingement syndrome 3. Right shoulder SLAP tear Postoperative diagnosis: 1. Right shoulder rotator cuff tear 2. Right shoulder subacromial impingement syndrome 3. 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 Right shoulder arthroscopic rotator cuff repair 2. Right shoulder arthroscopic subacromial decompression 3. Right shoulder labral debridement Surgeon: Travis Stewart DO Residential Advisor: Ankita Yin PA-C Anesthesia: General LMA with interscalene block Sugar Laboratory Assistant: Boyd Moore CRNA Estimated blood loss: 5 cc IV fluids: Per anesthesia record Urine output: None recorded Packing/drains: None Implants: Arthrex 4.75 mm bio composite swivel lock anchor, Arthrex bone Sync calcium phosphate cement 1 cc Preoperative indications: This is a 77-year-old male seen in outpatient setting for left shoulder pain.. He had profound weakness in his supraspinatus. MRI demonstrated a full-thickness retracted tear of the supraspinatus. I recommend surgical intervention in the form of right shoulder arthroscopic rotator cuff repair, subacromial decompression. Patient also had evidence of a chronic SLAP tear and biceps tenodesis was recommended. Informed consent was obtained in the outpatient setting. Risks, benefits, terms the procedure reviewed with the janina tient at length and he agreed to proceed. Risk included but were not limited to bleeding, infection, loss of life or limb, need for additional surgery, persistent pain, nonhealing tendon or wounds, stiffness, neurovascular injury, DVT or PE. Patient expressed understanding of these risks and wished to proceed with surgery. Description of procedure: Patient was identified in preoperative holding area by name, medical record number, and date of . The operative extremity was marked. All questions were answered to the patient's satisfaction. An interscalene block was administered by anesthesia prior to the procedure. Patient was then brought to the operative suite at time of his procedure. He was positioned supine a sterile operating table. General anesthesia was induced and LMA was placed. Patient was then placed in lateral decubitus position with the right side up. A beanbag was used to hold the patient in the lateral decubitus position. An axillary roll was placed. Pillows were placed beneath and between his legs to for any bony prominences. We prepped and draped the right upper extremity in normal, sterile orthopedic fashion. The operative extremity was placed in traction utilizing arthroscopic bedroom with 15 pounds of tension applied to the operative extremity throughout the arthroscopic portion of the case. We performed a timeout with all parties in attendance in agreement with the side, site, and operation be performed. No concerns were voiced and we elected to proceed with surgery. 2 g Ancef was administered IV prior to incision by anesthesia staff. I first established a standard posterior portal 2 fingerbreadths inferior medial to the posterior lateral border of the scapular spine. Blunt tipped trocar and arthroscopic cannula was introduced into the glenohumeral joint. Joint was inflated with normal saline with epinephrine. Arthroscope was then introduced. Diagnostic arthroscopy was commenced. Full-thickness tearing was noted at the supraspinatus with a bare footprint. Biceps tendon was absent and appeared to be chronically ruptured. Standard interval portal was then established with an 11 blade scalpel. Subscapularis was unremarkable. Glenohumeral cartilage was pristine. Degenerative labral fraying was noted as well as a chronic appearing SLAP tear which was debrided to a stable rim of labral tissue with a radial rese ctor. The articular side of the supraspinatus was then debrided with the radial resector. No loose bodies were identified. I then turned my attention to the subacromial space. Arthroscopic instruments were removed. I reentered the shoulder in the subacromial space with blunt tipped trocar. Standard lateral portal was established with an 11 blade scalpel. Passport was placed for suture management during rotator cuff repair. I then skeletonized the undersurface of the acromion. A prominent downsloping spur from the anterior lateral surface of the acromion was identified. Acromioplasty was performed with the arthroscopic bur removing the spur. I then exposed the supraspinatus footprint with the cautery device. The footprint was lightly decorticated with a bur. Bursal side of the tendon tissue was debrided with a radial resector. I then proceeded with single row repair with a modified Alexandre-Navdeep type suture orientation. I passed inverted mattress suture with a scorpion suture passer utilizing a fiber tape suture. Fiber link suture was then passed medial to the fiber tape suture. Suture was then passed through the eyelet of a 4.75 mm bio composite swivel lock anchor. Hog Stomach Preparer hole was generated in the lateral greater tuberosity. I attempted to place the anchor but was unsuccessful due to poor bone quality. We attempted a another spray pilot hole but we were again unsuccessful due to poor bone quality. I elected to augment the bone with calcium phosphate cement which was placed via Touhy needle, a total of 1 cc. After 2 minutes, the swivel lock anchor was reintroduced and the spray pilot hole sutures tensioned and held in place. After approximately 10 minutes, I applied traction to the anchor and fixation was achieved. Sutures were cut flush with the anchor. I then thoroughly lavaged the subacromial space. Arthroscopic instruments were removed. Portal sites were closed in standard fashion with a [id number] 3- 0 nylon suture. Bulky sterile compression dressing was applied. Patient was placed in UltraSling. He tolerated the procedure well without apparent complication. He was safely awoken the operative suite and extubated. He was transferred to his gurney and subsequently to PACU in stable condition. Need for skilled regional administrative assistant: Ankita Yin PA-C was critical to the outcome of the case. During the course of the procedure the physician regional administrative assistant played a vital role. Her intimate knowledge of my steps in the procedure aided in safe and expedient completion of the procedure. The PA played a vital role in positioning particularly in obtaining the appropriate positioning. The PA was also vital in the retraction of soft tissues during the exposure and protecting vital structures. The PA was also vital and obtaining tendon reduction and a ssisting with hardware placement. She also played a vital role in closure and sling application with my direct supervision. Post Operative Plan: Weightbearing: Nonweightbearing right upper extremity, okay for pendulums. Range of motion of wrist elbow and hand as tolerated. Antibiotics: 2 g Ancef IV prior to incision DVT Prophylaxis: Aspirin enteric-coated 81 mg twice daily starting tomorrow Lundy: None Dressing: Maintain dressing x 2 days then ok to shower X-Rays: none Pain Medication: Oxycodone Rx upon discharge Follow-up: 2 weeks post-operatively with me in the office
== END 2023-05-11 15:39 | disposition home or self-care (01) ==
LOC: SDC 09:09 → AC 09:11
PROVIDERS: PCP Family Medicine; Referring Provider Family Medicine; Visit Provider Student in an Organized Health Care Education/Training Program
PROC: (CPT 29827; principal; 2023-05-11 11:10)
DX: S46.011A Strain of muscle(s) and tendon(s) of the rotator cuff of right shoulder, initial encounter (principal); I48.91 Unspecified atrial fibrillation; M75.41 Impingement syndrome of right shoulder; S43.431A Superior glenoid labrum lesion of right shoulder, initial encounter; Z79.01 Long term (current) use of anticoagulants; Z79.899 Other long term (current) drug therapy; W19.XXXA Unspecified fall, initial encounter
CPT/HCPCS: 29827; 29826; 64415; 01630; C1713; J7120; J2405